=== PATIENT | female | born 1975 | race Caucasian/White ===

== ENCOUNTER 2024-01-13 19:11 | Emergency (ER) | payer OTHER, SELFPAY ==
[2024-01-13 19:23] VITALS: BP 108/68
--- NOTE | 2024-01-13 21:40 | ED.GENMED ---
History of Present Illness
General
Chief Complaint: Musculo-Skeletal Complaint
Source: patient
Exam Limitations: none
Time Seen by Provider: 01/13/24 21:05
History of Present Illness
History of Present Illness:
This is a 48 year old female that comes in with c/o left buttocks pain that goes into her leg. 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 But
when she stops the pain is unbearable. States that there was no fall or injury. States that the pain is in the left buttocks and goes into the left leg. States that she has pain going up and down the steps. Denies any fever, chills, chest pain, SOB,
abd pain nausea, vomiting, diarrhea, headache, dizziness, urinary burning.
Past History
Past History
ED Past Medical History: None; Negative Asthma, HTN, Hypercholesterolemia or NIDDM
ED Past Surgical History: None
Social History
Tobacco: Non-smoker
Alcohol: None
Personal:
Living: with family
Employment: Employed
Review of Systems
Review of Systems
All Other Systems: ROS reviewed and negative except as documented in HPI and ROS
Constitutional: Reports no symptoms; Denies fever or chills
EENT: Reports no symptoms
Respiratory: Reports no symptoms; Denies cough or trouble breathing
Cardiac: Reports no symptoms; Denies chest pain
ABD/GI: Reports no symptoms; Denies abdominal pain, nausea, vomiting or diarrhea
: Reports no symptoms; Denies dysuria or urgency
Musculoskeletal: Reports other (Pain left buttocks down into the left leg that wraps around. )
Skin: Reports no symptoms
Neurological: Reports no symptoms; Denies dizzy or headache
Psychiatric: Reports no symptoms
Phy Exam
General Physical Exam
General Presentation: mild distress
General age: appears stated age
General Skin: warm and dry
General Habitus: normal
General Mental: alert
General Hydration: appears well hydrated
ENT Exam
ENT Exam: TM's normal, pharynx normal and neck supple
Eye Exam
Eye Exam: EOMI
Cardiovascular Exam
Cardiovascular Exam: regular rate/rhythm, no edema, no murmur and normal peripheral pulses
Pulmonary Exam
Pulmonary Exam: lungs clear, no respiratory distress, no rales, chest non tender, no crackles, no rhonchi, no wheezing and no cough
Musculoskeletal Exam
Musculoskeletal Exam: full ROM, no edema and other (Negative discomfort with flexion of the knee, inversion or eversion, Tenderness with palpation over the posterior upper buttocks. )
Skin Exam
Skin Exam: normal color, warm/dry, no rash and no petechia
Psychiatric Exam
Psychiatric Exam: normal mood/affect
Course
Orders/Labs/Results
Orders:
Orders
01/13/24 21:39
Dexamethasone Sod Phosphate [Decadron] 20 mg IV NOW STA
HYDROmorphone [Dilaudid] 0.5 mg IV NOW STA
Ondansetron Injectable [Zofran] 4 mg IV NOW STA
Vital Signs
Initial and Last Documented VS:
Initial Vital Signs
Temp Pulse Resp BP Pulse Ox
98.4 F 62 18 108/68 100
01/13/24 19:23 01/13/24 19:23 01/13/24 19:23 01/13/24 19:23 01/13/24 19:23
Last Documented Vital Signs
Temp Pulse Resp BP Pulse Ox
98.4 F 54 12 93/62 98
01/13/24 19:23 01/13/24 22:18 01/13/24 22:18 01/13/24 22:18 01/13/24 22:18
MDM/Problems Addressed
Differential Diagnosis Includes:
Sciatic pain,
MDM/Problems Addressed:
This is a 48 year old female that comes in with c/o pain in the left buttocks that comes down into the right leg and wraps around.
Will give IV steroids and pain medication.
Back into see patient. Patient is feeling better. Will discharge home. Will give steroid for the next 5 days. Patient can use Lidocaine patch as needed. Ice of heat which ever makes her pain better. Patient to rest and follow up with the family
doctor.
Chronic conditions affecting care:
NA
Acute Exacerbation and/or Progression of Chronic Illness:
NA
*Pulse Oximetry
Patient hypoxic: no
*EKG
Interpreted by ED Provider?: NA
Rate: EKG- N/A
*Profiler Operator Interpretation
Rate: Profiler Operator- N/A
*Critical Care Note
Total Time (30-74mins, 75-104mins- exclusive of procedures): Not Applicable
ED Attending Note
-
Portions of this chart may have been created with voice recognition software.� Occasional wrong word or��sound alike� substitutions may have occurred due to the inherent limitations of voice recognition software.
Discharge Plan
Departure
Patient Disposition: Home (Routine Discharge)
Date of Disposition: 01/13/24
Time of Disposition: 23:04
Patient with high blood pressure during this ER visit?: No
Condition: Good
Covid-19: Not Applicable
Discharge Problem:
Sciatic leg pain
Instructions: Sciatica (DC)
Prescriptions:
New
prednisone 20 mg tablet
40 mg PO DAILY Qty: 10 0RF
Referrals:
Pam Wilson PA [Family Provider] - Follow up in 5-7 days
Activity Restrictions/Additional Instructions:
As discussed, this is most likely sciatic pain. You have been given IV steroids here and a prescription has been sent to your Pharmacy for steroid for the next 5 days. Please also use Tylenol 1000mg every 6 hours for pain and alternate with
Ibuprofen 600mg every 6 hours with food for pain. So if you take the Tylenol at 9am then the Ibuprofen at 12noon the Tylenol will be due again at 3pm and the Ibuprofen at 6pm. This will help control the pain and decrease the inflammation also. Rest.
You may use your rub that you have used prior. Follow up with the family doctor for recheck. IF YOU HAVE INCREASED OR CHANGING PAIN, SWELLING OF THE LEFT LEG OR YOU HAVE ANY OTHER CONCERNS PLEASE RETURN TO THE EMERGENCY ROOM.
Interventions
Interventions:
*Risk Screen - Suicide Last Done: 01/13/24 21:19
*General Assessment Last Done: 01/13/24 21:19
*Neglect/Abuse Screening Last Done: 01/13/24 21:19
ED- Fall Risk Assessment Last Done: 01/13/24 21:19
*ED COVID-19 Vaccine History Last Done: 01/13/24 21:19
ED-Musculoskeletal Assessment Last Done: 01/13/24 21:19
Discharge Date and Time
Print Language: [place]
[2024-01-13 21:48] VITALS: BMI 25.8
[2024-01-13] MEDS: ZOFRAN 4 MG IV (21:54)
[2024-01-13] MEDS: DECADRON 20 MG IV (21:54)
[2024-01-13] MEDS: DILAUDID 0.5 MG IV (21:54)
[2024-01-13 22:18] VITALS: BP 93/62
[2024-01-13 23:17] VITALS: BP 97/66
== END 2024-01-13 23:19 | disposition home or self-care (01) ==
LOC: EMR 19:11
PROVIDERS: EMERGENCY PHYSICIAN Student in an Organized Health Care Education/Training Program; FAMILY PHYSICIAN Physician Assistant Medical
DX: M54.42 Lumbago with sciatica, left side (principal)
CPT/HCPCS: 99284; 96374; 96375 ×2

== ENCOUNTER → 2024-03-30 12:18 | Outpatient (REF) | payer OTHER, SELFPAY | LOC: RAD 12:18 | PROVIDERS: ATTENDING PHYSICIAN Student in an Organized Health Care Education/Training Program | DX: M54.16 Radiculopathy, lumbar region (principal); M79.605 Pain in left leg | CPT/HCPCS: 72110 ==

== ENCOUNTER 2024-04-17 07:14 | Outpatient (RCR) | payer OTHER, SELFPAY | END 2024-04-17 23:59 | disposition home or self-care (01) | LOC: RPT 07:14 | PROVIDERS: ATTENDING PHYSICIAN Student in an Organized Health Care Education/Training Program | DX: M54.16 Radiculopathy, lumbar region (principal); Z73.6 Limitation of activities due to disability | CPT/HCPCS: 97110; 97162 ==